=== PATIENT | female | born 1990 | race Caucasian/White ===

== ENCOUNTER → 2016-08-30 | Outpatient (CLI) | payer BC ==
[~2016-08-30] MED LIST: AMOXICILLIN 25250 MG PO; BEYAZ1 TAB PO; MOTRIN 600600 MG/TAB PO; NORCO 325 MG-51 TAB PO; PERCOCET 325 MG1 TA2 PO; PERCOCET 325 MG1 TAB PO; PRENATAL; PRENATAL VITAMI1 TA2 PO; TYLENOL 325MG325 MG PO
== END ==
LOC: COL.CARD 12:56
DX: R40.4 Transient alteration of awareness (principal)

== ENCOUNTER 2016-09-06 20:57 | Emergency (ER) | payer BC ==
[~2016-09-06] VITALS: Ht 170.2 cm; Wt 59.1 kg
[2016-09-06 21:01] VITALS: BP 115/73; PULSE 108; TEMP 99
== END 2016-09-06 21:51 | disposition left against medical advice (07) ==
LOC: COL.ER 20:57
DX: R68.83 Chills (without fever) (principal); Z53.21 Procedure and treatment not carried out due to patient leaving prior to being seen by health care provider

== ENCOUNTER 2017-02-13 06:24 | Inpatient (IN) | payer BC, MEDICAID ==
[~2017-02-13] VITALS: Ht 170.2 cm; Wt 72.7 kg
[2017-04-04] VITALS (19 sets, daily range): BP systolic 88–121; BP diastolic 50–72; PULSE 64–111; TEMP 97.7–98.5
[2017-04-04] MEDS ORDERED: KEPPRA 500MG500 MG PO (07:01)
[2017-04-04 07:10] LABS: BASO % 0.3 % (0.0-2.0); EOS # 0.1 (0.0-0.7); EOS % 1.9 % (0-4.0); GRAN % 72.5 % (42.2-75.2); HEMATOCRIT 32.6 % (37.0-47.0); HEMOGLOBIN 10.7 g/dl (12.5-16.0); LYMPH # 1.2 (1.2-3.4); LYMPH % 17.6 % (20.0-51.0); MEAN CELL VOLUME 95 fl (80.0-100.0); MEAN CORPUSCULAR HEMOGLOBIN 31 pg (27.0-31.0); MEAN CORPUSCULAR HGB CONC 33 g/dl (33.0-37.0); MEAN PLATELET VOLUME 10.6 fl (7.4-10.4); MONO # 0.5 (0.1-0.6); MONO % 7.3 % (1.7-9.3); PLATELET COUNT 129 K/mm3 (130-400); RED BLOOD COUNT 3.44 M/mm3 (4.10-5.30); REDCELL DISTRIBUTION WIDTH-CV 12.5 % (11.5-14.5)
[2017-04-05 01:15] VITALS: BP 74/45; PULSE 73; TEMP 98.2
[2017-04-05 06:32] VITALS: BP 87/51; PULSE 62; TEMP 97.6
[2017-04-05 06:45] LABS: BASO % 0.4 % (0.0-2.0); EOS # 0.2 (0.0-0.7); EOS % 3.4 % (0-4.0); GRAN # 4.1 (1.4-6.5); GRAN % 60.7 % (42.2-75.2); LYMPH # 1.8 (1.2-3.4); LYMPH % 27.1 % (20.0-51.0); MEAN CELL VOLUME 95 fl (80.0-100.0); MEAN CORPUSCULAR HGB CONC 33 g/dl (33.0-37.0); MEAN PLATELET VOLUME 11.1 fl (7.4-10.4); MONO # 0.6 (0.1-0.6); MONO % 8.3 % (1.7-9.3); PLATELET COUNT 125 K/mm3 (130-400); RED BLOOD COUNT 3.29 M/mm3 (4.10-5.30); REDCELL DISTRIBUTION WIDTH-CV 12.7 % (11.5-14.5)
[2017-04-05 06:56] LABS: HEMATOCRIT 31.1 % (37.0-47.0); HEMOGLOBIN 10.3 g/dl (12.5-16.0); MEAN CORPUSCULAR HEMOGLOBIN 31 pg (27.0-31.0)
[2017-04-05 09:14] VITALS: BP 93/60; PULSE 74
[2017-04-05 16:17] VITALS: BP 91/53; PULSE 80; TEMP 98
[2017-04-05 19:42] VITALS: BP 106/64; PULSE 76; TEMP 98.1
[2017-04-06 06:50] VITALS: BP 93/66; PULSE 84; TEMP 97.9
[2017-04-06] MEDS ORDERED: IBU600 MG PO (08:38)
[2017-04-06] MEDS ORDERED: NORCO 325 MG-51 TAB PO (08:39)
== END 2017-04-06 11:35 | disposition home or self-care (01) | DRG 765 ==
LOC: OB 04-04 05:43 → LDR 04-04 06:38 → OB 04-05 21:20 → LDR 04-10 06:23
PROVIDERS: Obstetrics & Gynecology
PROC: 10D00Z1 Extraction of Products of Conception, Low, Open Approach (ICD-10-PCS; principal; 2017-04-04)
PROC: 0UB70ZZ Excision of Bilateral Fallopian Tubes, Open Approach (ICD-10-PCS; 2017-04-04)
DX: O34.211 Maternal care for low transverse scar from previous cesarean delivery (principal); O99.354 Diseases of the nervous system complicating childbirth; N85.8 Other specified noninflammatory disorders of uterus; G40.909 Epilepsy, unspecified, not intractable, without status epilepticus; O99.824 Streptococcus B carrier state complicating childbirth; Z3A.39 39 weeks gestation of pregnancy; Z37.0 Single live birth
CPT/HCPCS: J0690; J1885; J2175; J2270; J2370; J2405; J2590; J3010; J7120

== ENCOUNTER 2017-04-10 04:55 | Observation (INO) | payer BC, MEDICAID ==
[~2017-04-10] VITALS: Ht 170.2 cm; Wt 68.2 kg
[~2017-04-10 04:55] MED LIST changes: +IBU600 MG PO; +KEPPRA 500MG500 MG PO
[2017-04-10 05:35] LABS: BASO % 0.4 % (0.0-2.0); EOS # 0.4 (0.0-0.7); EOS % 7.3 % (0-4.0); GRAN # 3.3 (1.4-6.5); GRAN % 64.5 % (42.2-75.2); HEMATOCRIT 38.6 % (37.0-47.0); HEMOGLOBIN 12.5 g/dl (12.5-16.0); LYMPH # 1.1 (1.2-3.4); LYMPH % 21.6 % (20.0-51.0); MEAN CELL VOLUME 95 fl (80.0-100.0); MEAN CORPUSCULAR HEMOGLOBIN 31 pg (27.0-31.0); MEAN CORPUSCULAR HGB CONC 32 g/dl (33.0-37.0); MEAN PLATELET VOLUME 10.2 fl (7.4-10.4); MONO # 0.3 (0.1-0.6); PLATELET COUNT 193 K/mm3 (130-400); RED BLOOD COUNT 4.06 M/mm3 (4.10-5.30); REDCELL DISTRIBUTION WIDTH-CV 12.3 % (11.5-14.5)
[2017-04-10 05:45] LABS: ALBUMIN 3.4 gm/dL (3.5-5.0); BILIRUBIN,TOTAL 0.4 mg/dL (0.0-1.0); CALCIUM 8.8 mg/dL (8.4-10.2); CREATININE, serum 0.69 mg/dL (0.52-1.25); POTASSIUM 4.5 mmol/L (3.4-5.0); TOTAL PROTEIN 6.7 gm/dL (6.4-8.2)
[2017-04-10 06:01] LABS: PROLACTIN 181.3 ng/mL (3.0-18.6)
[2017-04-10 06:20] LABS: COLLECTION METHOD CLEAN CATCH
[2017-04-10 06:30] LABS: MUCOUS Present /lpf; PH 6 (5-8); URINE APPEARANCE Clear; URINE BACTERIA None Seen /hpf; URINE BILIRUBIN Negative (NEGATIVE); URINE BLOOD 1+ (NEGATIVE); URINE COLOR Yellow; URINE GLUCOSE Negative (NEGATIVE); URINE KETONE Negative (NEGATIVE); URINE LEUKOCYTE ESTERASE Negative (NEGATIVE); URINE NITRATE Negative (NEGATIVE); URINE PROTEIN(semi-quant) Negative (NEGATIVE)
[2017-04-10 10:20] VITALS: BP 111/65; PULSE 60; TEMP 98.3
[2017-04-10 13:00] VITALS: BP 95/54; PULSE 51
[2017-04-10 16:30] VITALS: BP 99/62; PULSE 66; TEMP 98.2
[2017-04-10 19:37] VITALS: BP 83/60; PULSE 58; TEMP 97.6
[2017-04-10 22:35] VITALS: BP 108/64; PULSE 63; TEMP 97.8
[2017-04-10 22:36] VITALS: BP 108/64; PULSE 63; TEMP 97.8
[2017-04-11 02:52] VITALS: BP 102/57; PULSE 48; TEMP 97.7
[2017-04-11 02:57] VITALS: BP 102/57; PULSE 48; TEMP 97.7
[2017-04-11 06:57] LABS: BASO % 0.5 % (0.0-2.0); EOS # 0.4 (0.0-0.7); EOS % 6.5 % (0-4.0); GRAN # 3.3 (1.4-6.5); GRAN % 59.5 % (42.2-75.2); HEMATOCRIT 38.1 % (37.0-47.0); HEMOGLOBIN 12.5 g/dl (12.5-16.0); LYMPH # 1.4 (1.2-3.4); LYMPH % 25.3 % (20.0-51.0); MEAN CELL VOLUME 93 fl (80.0-100.0); MEAN CORPUSCULAR HEMOGLOBIN 31 pg (27.0-31.0); MEAN CORPUSCULAR HGB CONC 33 g/dl (33.0-37.0); MONO # 0.4 (0.1-0.6); PLATELET COUNT 214 K/mm3 (130-400); RED BLOOD COUNT 4.09 M/mm3 (4.10-5.30); REDCELL DISTRIBUTION WIDTH-CV 12.4 % (11.5-14.5)
[2017-04-11 07:05] LABS: ALBUMIN 3.2 gm/dL (3.5-5.0); BILIRUBIN,TOTAL 0.6 mg/dL (0.0-1.0); CALCIUM 8.8 mg/dL (8.4-10.2); CREATININE, serum 0.72 mg/dL (0.52-1.25); POTASSIUM 3.8 mmol/L (3.4-5.0); TOTAL PROTEIN 6.2 gm/dL (6.4-8.2)
[2017-04-11 07:20] VITALS: BP 106/59; PULSE 55; TEMP 98.4
[2017-04-11] MEDS ORDERED: KEPPRA750 MG PO (08:44)
== END 2017-04-11 09:05 | disposition home or self-care (01) ==
LOC: COL.ER 04:55 → OB 07:19
PROVIDERS: Emergency Medicine; Internal Medicine
DX: O99.355 Diseases of the nervous system complicating the puerperium (principal); G40.89 Other seizures; Z87.820 Personal history of traumatic brain injury
CPT/HCPCS: G0378

== ENCOUNTER 2018-04-06 10:00 | Inpatient (IN) | payer BC ==
[~2018-04-06] VITALS: Ht 170.2 cm; Wt 56.8 kg
[~2018-04-06 10:00] MED LIST changes: +KEPPRA750 MG PO
[2018-04-06 10:43] LABS: BASO % 0.7 % (0.0-2.0); EOS # 0.1 (0.0-0.7); EOS % 2.3 % (0-4.0); GRAN # 3.2 (1.4-6.5); GRAN % 73.1 % (42.2-75.2); HEMATOCRIT 38.9 % (37.0-47.0); LYMPH # 0.8 (1.2-3.4); LYMPH % 18.2 % (20.0-51.0); MEAN CELL VOLUME 92 fl (80.0-100.0); MEAN CORPUSCULAR HEMOGLOBIN 31 pg (27.0-31.0); MEAN CORPUSCULAR HGB CONC 33 g/dl (33.0-37.0); MEAN PLATELET VOLUME 11.7 fl (7.4-10.4); MONO # 0.2 (0.1-0.6); MONO % 5.5 % (1.7-9.3); PLATELET COUNT 151 K/mm3 (130-400); RED BLOOD COUNT 4.22 M/mm3 (4.10-5.30); REDCELL DISTRIBUTION WIDTH-CV 12.4 % (11.5-14.5)
[2018-04-06 10:50] LABS: COLLECTION METHOD CLEAN CATCH
[2018-04-06 10:56] LABS: MUCOUS Present /lpf; PH 7 (5-8); URINE APPEARANCE Clear; URINE BACTERIA None Seen /hpf; URINE BILIRUBIN Negative (NEGATIVE); URINE BLOOD Negative (NEGATIVE); URINE COLOR Yellow; URINE GLUCOSE Negative (NEGATIVE); URINE KETONE Negative (NEGATIVE); URINE LEUKOCYTE ESTERASE Negative (NEGATIVE); URINE NITRATE Negative (NEGATIVE); URINE PROTEIN(semi-quant) Negative (NEGATIVE); URINE RBC None Seen /hpf; URINE UROBILINOGEN Negative (NEGATIVE)
[2018-04-06 10:57] LABS: ALANINE AMINOTRANSFERASE 25 U/L (9-52); ALKALINE PHOSPHATASE 53 U/L (50-136); ANION GAP 6 mmol/L (7-16); AST,SGOT 21 U/L (15-37); BILIRUBIN,TOTAL 0.9 mg/dL (0.0-1.0); BLOOD UREA NITROGEN 11 mg/dL (7-17); C-REACTIVE PROTEIN < 0.5 mg/dL (0.0-0.9); CARBON DIOXIDE 26 mmol/L (22-30); CHLORIDE 105 mmol/L (98-107); CREATININE, serum 0.61 mg/dL (0.52-1.25); GLUCOSE 96 mg/dL (74-106); POTASSIUM 4.5 mmol/L (3.4-5.0); SODIUM 137 mmol/L (137-145); TOTAL PROTEIN 6.8 gm/dL (6.4-8.2)
[2018-04-06 11:10] LABS: PROLACTIN 32.4 ng/mL (3.0-18.6)
[2018-04-06] MEDS ORDERED: KEPPRA250 MG PO (11:44)
--- NOTE | 2018-04-06 13:20 | NUR ---
patient arrived to room 313.awake,resting in bed with family at bedside.denies any needs at this time.will continue to monitor.call light in reach.
--- NOTE | 2018-04-06 13:21 | NUR ---
report received from CAROL Dailey.
--- NOTE | 2018-04-06 14:15 | NUR ---
assessment complete.patient awake,a/ox4.c/o headache.prn tylenol given.seizure precautions in place.patient VSS.denies any more concerns at this time.call light in reach
[2018-04-06 17:46] VITALS: BP 100/55; PULSE 85; TEMP 98.3
--- NOTE | 2018-04-06 17:46 | NUR ---
Pt reports seizure like activity x2.describes it as "feels like the room stops and I have chills and a sensation to stomach like an upset stomach."seizure precautions in place.appetite improved.patient denies further needs at this time.call light in reach.
[2018-04-06 19:33] VITALS: BP 101/59; PULSE 79; TEMP 98.6
--- NOTE | 2018-04-06 19:55 | NUR ---
Patient resting in bed with at bedside. Seizure precautions in place. Pt denies pain. Neurological assessment is WNL. Pt states she "has not had an episode in a while". Pt describes the "episodes" as a feeling and states nausea, goosebumps, anger as symptoms. She states they only last a few seconds. Pt asks if she will be getting her Keppra tonight. Upon review the medication has not been continued. The home medication is also entered as daily. Pt states it a BID medication. Pt also asking if Dr. Munoz will be coming tonight. Will contact Dr. Munoz.
--- NOTE | 2018-04-06 20:20 | NUR ---
Dr. Munoz contacted about restarting pts home medication. Orders received to restart medication and start new medication. Dr. Munoz also stated she would not see the patient tonight because she was not called the consult.
[2018-04-06 23:48] VITALS: BP 100/54; PULSE 82; TEMP 98.5
[2018-04-07 03:45] VITALS: BP 106/58; PULSE 70; TEMP 98.9
--- NOTE | 2018-04-07 06:42 | NUR ---
Pt sleeping. No distress noted. Pt has slept throughout the night without difficulty. Has reported no seizure activity. Report given to Erika MEDINA.
[2018-04-07 08:23] LABS: BASO % 0.8 % (0.0-2.0); EOS # 0.1 (0.0-0.7); GRAN # 2.2 (1.4-6.5); GRAN % 59.4 % (42.2-75.2); HEMATOCRIT 38.4 % (37.0-47.0); HEMOGLOBIN 12.8 g/dl (12.5-16.0); LYMPH % 27.7 % (20.0-51.0); MEAN CELL VOLUME 92 fl (80.0-100.0); MEAN CORPUSCULAR HEMOGLOBIN 31 pg (27.0-31.0); MEAN CORPUSCULAR HGB CONC 33 g/dl (33.0-37.0); MEAN PLATELET VOLUME 12.9 fl (7.4-10.4); MONO # 0.3 (0.1-0.6); MONO % 8.8 % (1.7-9.3); PLATELET COUNT 153 K/mm3 (130-400); RED BLOOD COUNT 4.17 M/mm3 (4.10-5.30); REDCELL DISTRIBUTION WIDTH-CV 12.5 % (11.5-14.5)
[2018-04-07 08:35] LABS: CALCIUM 8.8 mg/dL (8.4-10.2); CREATININE, serum 0.64 mg/dL (0.52-1.25); POTASSIUM 3.9 mmol/L (3.4-5.0)
[2018-04-07 09:25] VITALS: BP 115/69; PULSE 105; TEMP 98.4
--- NOTE | 2018-04-07 09:45 | NUR ---
PATIENT ASSESSMENT COMPLETED. SHE DENIES ANY CONCERNS OR NEEDS.
[2018-04-07] MEDS ORDERED: VIMPAT100 MG PO (11:18)
[2018-04-07] MEDS ORDERED: VIMPAT150 MG PO (11:20)
[2018-04-07 11:44] VITALS: BP 105/66; PULSE 73; TEMP 98.4
--- NOTE | 2018-04-07 12:00 | NUR ---
PATIENT DISCHARGE INSTRUCTIONS GIVEN TO PATIENT AND . NEW SCRIPT FOR NEW MEDICATION PROVIDED. 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
--- NOTE | 2018-04-07 12:20 | NUR ---
PATIENT DISCHARGE TO HOME VIA PEDIS AND BELONGINGS SENT WITH HER. DENIES OTHER QUESTIONS.
--- NOTE | 2018-04-07 12:41 | NUR ---
Plan: to return home upon DC Assess: Patient reports that she has support from her spouse Bernard when she returns home, . Patient reports not having a DPOA, and [facility]. Patient reports concern about the [facility] issues with missing scripts or wrong medications. Patient denies the use of Home health or DME. Patient reports issues with obtaining correct Keppra. Action: SW educated patient on DPOA, SW called pharmacy to make report of concerns, and No addtional needs are identifed.
== END 2018-04-07 12:20 | disposition home or self-care (01) | DRG 101 ==
LOC: COL.ER 10:00 → MEDICAL 11:54 → COL.ER 11:54 → MEDICAL 11:54
PROVIDERS: Family Medicine; Physician Assistant; ADMIT Hospitalist
DX: G40.209 Localization-related (focal) (partial) symptomatic epilepsy and epileptic syndromes with complex partial seizures, not intractable, without status epilepticus (principal); S06.2X9S Diffuse traumatic brain injury with loss of consciousness of unspecified duration, sequela; V49.9XXS Car occupant (driver) (passenger) injured in unspecified traffic accident, sequela
CPT/HCPCS: C9254

== ENCOUNTER 2018-12-10 07:07 | Observation (INO) | payer BC ==
[~2018-12-10] VITALS: Ht 172.7 cm; Wt 54.6 kg
[~2018-12-10 07:07] MED LIST changes: +KEPPRA250 MG PO; +VIMPAT100 MG PO; +VIMPAT150 MG PO
[2018-12-10 07:54] LABS: BASO % 0.4 % (0.0-2.0); EOS # 0.2 (0.0-0.7); EOS % 4.3 % (0-4.0); GRAN # 3.1 (1.4-6.5); GRAN % 65.9 % (42.2-75.2); HEMOGLOBIN 11.8 g/dl (12.5-16.0); LYMPH % 22.1 % (20.0-51.0); MEAN CELL VOLUME 89 fl (80.0-100.0); MEAN CORPUSCULAR HEMOGLOBIN 29 pg (27.0-31.0); MEAN CORPUSCULAR HGB CONC 32 g/dl (33.0-37.0); MEAN PLATELET VOLUME 11.6 fl (7.4-10.4); MONO # 0.3 (0.1-0.6); MONO % 7.1 % (1.7-9.3); PLATELET COUNT 163 K/mm3 (130-400); RED BLOOD COUNT 4.13 M/mm3 (4.10-5.30); REDCELL DISTRIBUTION WIDTH-CV 12.6 % (11.5-14.5)
[2018-12-10 08:02] LABS: ALBUMIN 4.3 gm/dL (3.5-5.0); BILIRUBIN,TOTAL 0.4 mg/dL (0.0-1.0); CALCIUM 8.9 mg/dL (8.4-10.2); CREATININE, serum 0.66 (0.52-1.25); POTASSIUM 4.3 mmol/L (3.4-5.0); TOTAL PROTEIN 7.1 gm/dL (6.4-8.2)
[2018-12-10 08:18] LABS: HEMATOCRIT 36.7 % (37.0-47.0); PROLACTIN 62.2 ng/mL (3.0-18.6)
[2018-12-10 12:08] VITALS: BP 108/60; PULSE 78; TEMP 98.7
[2018-12-10 14:44] LABS: COLLECTION METHOD CLEAN CATCH
[2018-12-10 15:01] LABS: PH 8 (5-8); SQUAMOUS EPITHELIAL 0-2 /hpf; URINE APPEARANCE Clear; URINE BACTERIA None Seen /hpf; URINE BILIRUBIN Negative (NEGATIVE); URINE BLOOD Negative (NEGATIVE); URINE COLOR Straw; URINE GLUCOSE Negative (NEGATIVE); URINE KETONE Negative (NEGATIVE); URINE LEUKOCYTE ESTERASE Negative (NEGATIVE); URINE NITRATE Negative (NEGATIVE); URINE PROTEIN(semi-quant) Negative (NEGATIVE); URINE RBC 0-2 /hpf; URINE UROBILINOGEN Negative (NEGATIVE)
[2018-12-10] MEDS ORDERED: TEGRETOL 2200 MG/TA1 PO (15:32)
[2018-12-10] MEDS ORDERED: IBU600 MG PO (15:32)
[2018-12-10 15:33] VITALS: BP 113/68; PULSE 69; TEMP 97.7
--- NOTE | 2018-12-10 16:00 | NUR ---
PT WAS ADMITTED TO FLOOR. PT WENT DOWN FOR CT THEN SHORLTY AFTER PT CALLED OUT AND WANTED RESULTS TO HER CT. HAD C/O HEADACHE, ADMINISTERED TYLENOL. THIS NURSE TOOK IN SEIZURE PADS FOR BED AND TYLENOL THIS AFTERNOON, PT STATED THAT HERE WAS NO NEED FOR THE SEIZURE PADS THAT SHE WASNT STAYING, SHE WANTED HER CT RESULTS THEN TO DISCHARGE. THIS NURSE CALLED PROVIDER ABOUT THIS, DR BRYAN INTO SEE PT AND DISCUSSED DISCARGE. DISCHARGE PAPERWORK ENTERED. DISCHARGE EDUCATION DISCUSSED WITH PT AND MED CHANGES VERIFIED. ALL QUESTIONS ANSWERED. IV AND TELE REMOVED.
[2018-12-10] MEDS ORDERED: VIMPAT200 MG PO (17:14)
== END 2018-12-10 16:30 | disposition home or self-care (01) ==
LOC: COL.ER 07:07 → MEDICAL 11:10
PROVIDERS: Family Medicine; Physician Assistant; ADMIT Hospitalist
DX: R56.9 Unspecified convulsions (principal); R35.0 Frequency of micturition; D64.9 Anemia, unspecified; F41.9 Anxiety disorder, unspecified; N92.6 Irregular menstruation, unspecified; Z87.820 Personal history of traumatic brain injury; Z82.0 Family history of epilepsy and other diseases of the nervous system
CPT/HCPCS: G0378

== ENCOUNTER 2019-10-02 11:01 | Day surgery (SDC) | payer BC ==
[2019-10-02] VITALS (8 sets, daily range): BP systolic 92–111; BP diastolic 56–69; PULSE 59–80; TEMP 98.1–98.8
[~2019-10-02] VITALS: Ht 170.2 cm; Wt 55.4 kg
[~2019-10-02 11:01] MED LIST changes: +TEGRETOL 2200 MG/TA1 PO; +VIMPAT200 MG PO
--- NOTE | 2019-10-02 14:55 | NUR ---
Pt to [facility] via cart from PACU. Pt awake and alert. Pt eating ice chips. Denies nausea, and c/o urgency to void. VS obtained and pt up to restroom. Pt voids large amount without difficulties. Pt back to room. Pt denies need at this time. Will continue to monitor.
--- NOTE | 2019-10-02 15:10 | NUR ---
Pt continues to rest. Pt c/o feeling the need to void. Explained to pt that she could be having some bladder spasms. Pt voices understanding. Warm blanket placed to pt's back. Pt expresses some relief. Will continue to monitor.
[2019-10-02] MEDS ORDERED: MAG-OX 400400 MG/TAB PO (15:17)
[2019-10-02] MEDS ORDERED: DHEA 10 MG TAB1 EACH PO (15:19)
[2019-10-02] MEDS ORDERED: [UNRECOGNIZED DRUG - CODE] PO (15:20)
--- NOTE | 2019-10-02 15:25 | NUR ---
Pt resting. Bladder spasms becoming more severe for pt. Pt rates left flank pain and spasms 8/10. Pt is restless. Will provide prn medications.
--- NOTE | 2019-10-02 15:40 | NUR ---
Pt demanding the stent be removed. Pt hollering out in pain. notified of bladder spasms. Pyridium ordered.
--- NOTE | 2019-10-02 15:45 | NUR ---
Pyridium 190mg po, Zofran 4mg IV, and Fentanyl 25mcg IV given per orders for bladderspasms, nausea and pain. Pt requesting nurse stay in room. Pt states "I don't want to be alone." Nurse to remain at bedside. Call light within reach.
--- NOTE | 2019-10-02 15:55 | NUR ---
Pt denies any improvment in pain. Fentanyl 23mcg IV given for pain. Will continue to monitor. Nurse remains at bedside.
--- NOTE | 2019-10-02 16:10 | NUR ---
Pt up to restroom. Voids moderate amount without difficulties. Pt back to bed. Pt cotninues to rate pain 8/10 to left flank and lower abdomen. Pt appears more relaxed. Rests on bed. Pt able to talk with via facetime. Will provide 1 more dose of Fentanyl IV per PRN orders.
--- NOTE | 2019-10-02 16:40 | NUR ---
Pt rates pain 6/10 to left flank and lower abdomen. Pt tolerating Applesauce. Will try PO pain medication.
--- NOTE | 2019-10-02 16:50 | NUR ---
Sturgeon 5/325mg 1 tablet po given for pain. Will continue to monitor.
--- NOTE | 2019-10-02 17:45 | NUR ---
Pt reports "I'm feeling much better." Pt wanting to go home. Pt's will be comming in from out of town. Discharge instructions reviewed with pt. She voices understanding. Pt wants to rest while we wait for husbands arrival. Call light within reach.
--- NOTE | 2019-10-02 18:31 | NUR ---
Pt's arrived. IV site discontinued with all parts intact. Pt dressed self without assistance. Pt escorted to private car via wheel chair. Pt accompanied home by her .
== END 2019-10-02 18:32 | disposition home or self-care (01) ==
LOC: SDCO 11:01
DX: N20.2 Calculus of kidney with calculus of ureter (principal); R56.9 Unspecified convulsions; F41.9 Anxiety disorder, unspecified; Z87.820 Personal history of traumatic brain injury; Z79.899 Other long term (current) drug therapy
CPT/HCPCS: C1769; C1894; C2617; J0690; J2405; J2704; J3010; J7120; Q9967

== ENCOUNTER 2022-05-08 00:38 | Emergency (ER) | payer BC ==
[~2022-05-08] VITALS: Ht 170.2 cm; Wt 86.4 kg
[~2022-05-08 00:38] MED LIST changes: +DHEA 10 MG TAB1 EACH PO; +MAG-OX 400400 MG/TAB PO; +ZOFRAN ODT4 MG PO; +[UNRECOGNIZED DRUG - CODE] PO
[2022-05-08 00:44] VITALS: TEMP 97.7
[2022-05-08 01:43] LABS: BASO % 0.6 % (0.0-2.0); EOS # 0.1 K/mm3 (0.0-0.7); EOS % 2.8 % (0.0-4.0); GRAN # 2.4 K/mm3 (1.4-6.5); GRAN % 67.8 % (42.2-75.2); HEMOGLOBIN 12.2 g/dl (12.5-16.0); LYMPH # 0.7 K/mm3 (1.2-3.4); LYMPH % 20.7 % (20.0-51.0); MEAN CELL VOLUME 98 fl (80.0-100.0); MEAN CORPUSCULAR HEMOGLOBIN 33 pg (27-31); MEAN CORPUSCULAR HGB CONC 33 g/dl (33.0-37.0); MEAN PLATELET VOLUME 11.4 fl (7.4-10.4); MONO # 0.3 K/mm3 (0.1-0.6); MONO % 7.8 % (1.7-9.3); PLATELET COUNT 123 K/mm3 (130-400); RED BLOOD COUNT 3.75 M/mm3 (4.10-5.30); REDCELL DISTRIBUTION WIDTH-CV 12.5 % (11.5-14.5)
[2022-05-08 01:44] LABS: HEMATOCRIT 36.6 % (37.0-47.0)
[2022-05-08 02:04] LABS: ALBUMIN 3.9 gm/dL (3.5-5.0); BILIRUBIN,TOTAL 0.4 mg/dL (0.2-1.2); CALCIUM 8.5 mg/dL (8.4-10.2); CREATININE, serum 0.8 mg/dL (0.57-1.11); POTASSIUM 3.4 mmol/L (3.5-4.5); TOTAL PROTEIN 5.8 gm/dL (6.2-8.1)
[2022-05-08 02:18] LABS: TRICYCLIC ANTIDEPRESS URINE NEGATIVE
[2022-05-08 04:05] VITALS: BP 101/69; PULSE 78
== END 2022-05-08 04:07 | disposition home or self-care (01) ==
LOC: COL.ER 00:38
PROVIDERS: Nurse Practitioner
DX: G40.909 Epilepsy, unspecified, not intractable, without status epilepticus (principal); T42.6X6A Underdosing of other antiepileptic and sedative-hypnotic drugs, initial encounter; Z91.128 Patient's intentional underdosing of medication regimen for other reason; Z79.899 Other long term (current) drug therapy; Z28.310 Unvaccinated for COVID-19
CPT/HCPCS: J1953; J2405; J7030

== ENCOUNTER 2023-01-31 09:04 | Day surgery (SDC) | payer BC ==
[~2023-01-31] VITALS: Ht 172.7 cm; Wt 53.6 kg
[2023-01-31] MEDS ORDERED: KEPPRA1000 MG PO (09:56)
[2023-01-31] MEDS ORDERED: CRYSELLE 30 MCG1 TAB PO (09:56)
[2023-01-31] MEDS ORDERED: B-12 500 MCG PO (09:58)
[2023-01-31] MEDS ORDERED: VITAMIN C500 MG PO (09:59)
[2023-01-31] MEDS ORDERED: VALIUM 10MG10 MG/TAB PO (10:00)
[2023-01-31] MEDS ORDERED: BENTYL 10MG10 MG/CAP PO (11:40)
[2023-01-31 11:50] VITALS: BP 93/78; PULSE 76; TEMP 97.1
[2023-01-31 12:05] VITALS: BP 111/85; PULSE 65
[2023-01-31 12:20] VITALS: BP 113/78; PULSE 61
--- NOTE | 2023-01-31 13:50 | NUR ---
1150: PATIENT TO BAY 5 PER CART FROM ENDO SUITE. PATIENT AMBULATED FROM CART TO RECLINER X2 ASSIST. REPORT RECEIVED. VSS. ALERT AND ORIENTED X4. PATIENT REQUESTING APPLE JUICE AND APPLESAUCE. DR. TEJADA IN TO SPEAK WITH PATIENT AT THIS TIME. DENIES PAIN OR NAUSEA. NO FURTHER NEEDS NOTED. RESTING IN RECLINER CALL LIGHT IN REACH. AT BEDSIDE. 1205: VSS. PATIENT TOLERATING APPLESAUCE AND APPLE JUICE. DENIES ANY PAIN OR NAUSEA. NO FURTHER NEEDS NOTED AT THIS TIME. RESTING IN RECLINER. CALL LIGHT IN REACH. AT BEDSIDE. 1220: VSS. PATIENT CONTINUES TO TOLERATE APPLESAUCE AND APPLE JUICE. DENIES ANY PAIN OR NAUSEA. NO FURTHER NEEDS NOTED AT THIS TIME. RESTING IN RECLINER. CALL LIGHT IN REACH. AT BEDSIDE. 1230: DISCHARGE EDUCATION COMPLETED AT THIS TIME. PATIENT STATED UNDERSTANDING OF INSTURCTIONS. DISCHARGE PAPERWORK GIVEN TO PATIENT. IV DC'D AT THIS TIME. PATIENT DENIES ASSISTANCE DRESSING. 1240: PATIENT AMBULATED WITH STEADY GAIT FROM RECLINER TO WHEELCHAIR. PATIENT DISCHARGED TO HOME WITH FAMILY PER PERSONAL VEHICLE.
[2023-01-31 14:19] VITALS: BP 115/79; PULSE 89; TEMP 98
== END 2023-01-31 12:40 | disposition home or self-care (01) ==
LOC: SDCO 09:04
DX: K29.30 Chronic superficial gastritis without bleeding (principal); K64.0 First degree hemorrhoids; R10.84 Generalized abdominal pain; R19.7 Diarrhea, unspecified; R63.4 Abnormal weight loss; F17.290 Nicotine dependence, other tobacco product, uncomplicated
CPT/HCPCS: J2704; J7120